=== PATIENT | female | born 1940 | race Caucasian/White ===

== ENCOUNTER 2017-09-20 08:45 | Emergency (ER) | payer OTHER | END 2017-09-20 12:30 | disposition home or self-care (01) | LOC: FTE 08:45 | DX: M25.571 Pain in right ankle and joints of right foot (principal); I10 Essential (primary) hypertension; J45.909 Unspecified asthma, uncomplicated | CPT/HCPCS: 73610; 73610-RT; 73630; 93971; 99284-25 ==